=== PATIENT | female | born 1980 | race Caucasian/White ===

== ENCOUNTER → 2017-08-04 | Day surgery (SDC) | payer OTHER ==
[~2017-08-04] VITALS: Ht 165.1 cm; Wt 107.0 kg
[~2017-08-04] MED LIST: CELEXA20 MG PO; DICLOFENAC SODI75 MG PO; FERROUS SULFAT325 M2 PO; IBUPROFEN800 MG PO; KEFLEX500 MG PO; NEXIUM40 MG PO; PERCOCET 5/325 T1 EA PO; SYNTHROID 25 M25 MCG PO; TENORMIN 50 MG50 MG PO; VITAMIN C 500500 MG PO; VITAMIN D250000 UNIT PO; ZOFRAN4 MG PO
== END | disposition home or self-care (01) ==
LOC: OR 08:44
PROVIDERS: Podiatrist Foot & Ankle Surgery
PROC: 0SJG4ZZ Inspection of Left Ankle Joint, Percutaneous Endoscopic Approach (ICD-10-PCS; principal; 2017-08-04 11:30)
PROC: 0SPG04Z Removal of Internal Fixation Device from Left Ankle Joint, Open Approach (ICD-10-PCS; 2017-08-04 11:30)
DX: T84.84XA Pain due to internal orthopedic prosthetic devices, implants and grafts, initial encounter (principal); M65.872 Other synovitis and tenosynovitis, left ankle and foot; I10 Essential (primary) hypertension; K21.9 Gastro-esophageal reflux disease without esophagitis; M13.872 Other specified arthritis, left ankle and foot; E66.9 Obesity, unspecified; E03.9 Hypothyroidism, unspecified; J45.20 Mild intermittent asthma, uncomplicated; Z79.899 Other long term (current) drug therapy; Y83.1 Surgical operation with implant of artificial internal device as the cause of abnormal reaction of the patient, or of later complication, without mention of misadventure at the time of the procedure
CPT/HCPCS: 76000; J1885; J2250; J2405; J2795; J3010; J3370; J7120